=== PATIENT | female | born 1960 | race Caucasian/White ===

== ENCOUNTER 2016-10-17 11:59 | Emergency (ER) | payer MEDICAID ==
[2016-10-17 12:04] VITALS: BP 130/82
[2016-10-17] MEDS ORDERED: Acetaminophen/HYDROcodone 325-5 MG Tab PO ONE (12:15)
--- NOTE | 2016-10-17 12:24 | EDM.PDOC ---
ED HPI LOWER BACK PAIN/INJURY - General Chief Complaint: Back Pain or Injury Stated Complaint: FELL IN SHOWER Time Seen by Provider: 10/17/16 12:11 Source: Reports: Patient, Old records, Provider, RN notes reviewed History Limitations: Reports: Physical impairment - History of Present Illness INITIAL COMMENTS - FREE TEXT/NARRATIVE: 56-year-old female presents emergency department via EMS services she has a known history of alcohol abuse and dependence causing Wernicke-Korsakoff syndrome, she is a [facility] resident was evaluated by nurse practitioner today who called and discussed her case with me she had fallen in the shower and is now complaining of low back pain. Because of her physical impairment and difficult to obtain review of systems or significant past medical history, she is pleasant and cooperative - Related Data Allergies/ADRs: Allergies Allergy/AdvReac Type Severity Reaction Status Date / Time No Known Allergies Allergy Verified 10/17/16 12:05 Home Meds: Home Meds Acetaminophen [Tylenol Extra Strength] 500 mg PO QID 10/17/16 [History] ClonazePAM [KlonoPIN] 0.5 mg PO BEDTIME 10/17/16 [History] ClonazePAM [KlonoPIN] 0.5 mg PO Q8HR 10/17/16 [History] Donepezil HCl [Aricept] 10 mg PO BEDTIME 10/17/16 [History] Folic Acid 1 mg PO DAILY 10/17/16 [History] Magnesium Hydroxide [Milk of Magnesia] 30 ml PO BEDTIME PRN 10/17/16 [History] Mirtazapine [Remeron] 7.5 mg PO BEDTIME 10/17/16 [History] Polyethylene Glycol 3350 [MiraLAX] 17 gm PO DAILY 10/17/16 [History] Thiamine [Vitamin B-1] 100 mg PO DAILY 10/17/16 [History] buPROPion [Wellbutrin SR] 100 mg PO TID 10/17/16 [History] traZODone 25 mg PO BEDTIME 10/17/16 [History] Past Medical History Neurological History: Reports: Other (see below) (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) Psychiatric History: Reports: Depression Social & Family History - Tobacco Use Smoking Status *Q: Current Every Day Smoker Years of Tobacco use: 30 Packs/Tins Daily: 1 - Caffeine Use Caffeine Use: Reports: Coffee - Recreational Drug Use Recreational Drug Use: No ED ROS GENERAL - Review of Systems Review Of Systems: Unable To Obtain (Dementia) ED EXAM,LOWER BACK PAIN/INJURY - Physical Exam Exam: See Below Exam Limited By: Physical impairment General Appearance: alert, no apparent distress Respiratory/Chest: no respiratory distress Back Exam: normal inspection, decreased range of motion, vertebral tenderness ( Lumbar coccyx region). No: CVA tenderness (R), CVA tenderness (L), muscle spasm , paraspinal tenderness Extremities: normal inspection, non-tender, no pedal edema Course - Vital Signs Last Recorded V/S: Last Vital Signs Temp 98.5 F 10/17/16 12:03 Pulse 84 10/17/16 12:03 Resp 16 10/17/16 12:03 BP 130/82 10/17/16 12:03 Pulse Ox 94 L 10/17/16 12:03 - Orders/Labs/Meds Meds: Medications Discontinued Medications Generic Name Dose Route Start Last Admin Trade Name Freq PRN Reason Stop Dose Admin Hydrocodone Bitart/Acetaminophen 1 tab 10/17/16 12:15 10/17/16 12:21 Leonard 325-5 Mg PO 10/17/16 12:16 1 tab ONETIME ONE Administration Clonazepam 0.5 mg 10/17/16 12:33 10/17/16 12:49 Klonopin PO 10/17/16 12:34 0.5 mg ONETIME ONE Administration Cyclobenzaprine HCl 10 mg 10/17/16 13:25 10/17/16 13:29 Flexeril PO 10/17/16 13:26 10 mg ONETIME ONE Administration Hydromorphone HCl 1 mg 10/17/16 13:25 10/17/16 13:29 Dilaudid IM 10/17/16 13:26 1 mg ONETIME ONE Administration Departure - Departure Time of Disposition: 14:03 Disposition: [facility] Condition: poor Clinical Impression: Back pain Qualifiers: Back pain location: low back pain Chronicity: acute Back pain laterality: bilateral Sciatica presence: without sciatica Qualified Code(s): M54.5 - Low back pain Forms: ED Department Discharge Additional Instructions: Use hydrocodone as needed for back pain control, Please followup with your primary care provider in 3-5 days if not better, please call return to the emergency department with worsening of symptoms. - Assessment/Plan Plan: Assessment Acuity = acute Site and laterality = low back pain complicated patient with known history of toxic encephalopathy producing dementia Etiology = secondary to fall Manifestations = none Location of injury = home Lab values = x-rays of lumbar spine and coccyx were negative for any acute process no fracture noted Plan She had pain relief with the medications provided of hydrocodone, Dilaudid and Flexeril plan is discharge home with hydrocodone as needed for pain control follow up primary care 3-5 days for evaluation. She was able to and around the emergency department with assistance This note was dictated using [employer] voice recognition software please call with any questions.
[2016-10-17] MEDS ORDERED: ClonazePAM 0.5 MG Tab PO ONE (12:33)
--- NOTE | 2016-10-17 13:15 | CR ---
Lumbar Spine 2 or 3V HISTORY: pain FINDINGS: Lumbar vertebral bodies appear intact and in satisfactory alignment. No compression fracture or dis k space narrowing is seen. Spinous processes, posterior elements, and pedicles appear intact and in satisfactory alignment. Perivertebral soft tissues appear normal. A small amount of atherosclerotic calcification can be seen in the distal abdominal aorta. IMPRESSION: No acute lumbar spine abnormality identified.
--- NOTE | 2016-10-17 13:22 | CR ---
Sacrum Coccyx Min 2V HISTORY: pain FINDINGS: Segments of the sacrum and coccyx appear intact and in satisfactory alignment. No fracture or dislocation is identified. Bony architecture is preserved. Presacral soft tissues appear normal. IMPRESSION: No acute abnormality of the sacrum or coccyx is identified.
[2016-10-17] MEDS ORDERED: HYDROmorphone 1 MG/ML Syringe IM ONE (13:25)
[2016-10-17] MEDS ORDERED: Cyclobenzaprine 10 MG Tab PO ONE (13:25)
== END 2016-10-17 14:33 ==
LOC: JP.ED 11:59
DX: M54.5 Low back pain (principal); F03.90 Unspecified dementia, unspecified severity, without behavioral disturbance, psychotic disturbance, mood disturbance, and anxiety; F32.9 Major depressive disorder, single episode, unspecified; F17.210 Nicotine dependence, cigarettes, uncomplicated; Z79.899 Other long term (current) drug therapy; W18.2XXA Fall in (into) shower or empty bathtub, initial encounter
CPT/HCPCS: 72100; 72220; 96372; 99285; A9270; J1170

== ENCOUNTER 2018-09-03 05:49 | Emergency (ER) | payer MEDICAID, MEDICARE ==
--- NOTE | 2018-09-03 06:45 | CRLCR ---
INDICATION: Trauma. Fall. Pain. TECHNIQUE: Four views of the left knee. FINDINGS: There is no evidence for acute fracture dislocation. No erosion or effusion. The patella is within normal limits. The medial and lateral compartments are within normal limits. IMPRESSION: No acute fracture or acute malalignment of the left knee. Dictated by Basil Bailey MD @ Sep 03 2018 6:43AM Signed by Dr. Basil Bailey @ Sep 03 2018 6:43AM
--- NOTE | 2018-09-03 06:53 | CRLCT ---
INDICATION: Trauma. Fall. TECHNIQUE: Noncontrast head CT. FINDINGS: Intracranial cerebral and cerebellar atrophy. No intracranial hemorrhage or hydrocephalus. No evidence for acute ischemic changes or infarcts. No calvarial or skullbase fracture. The included paranasal sinuses and mastoid air cells are clear. IMPRESSION: No acute intracranial process identified. Age related changes intracranially. Please note that all CT scans at this facility use dose modulation, iterative reconstruction, and/or weight-based dosing when appropriate to reduce radiation dose to as low as reasonably achievable. Dictated by Basil Bailey MD @ Sep 03 2018 6:50AM Signed by Dr. Basil Bailey @ Sep 03 2018 6:52AM
[2018-09-03 07:10] VITALS: BP 109/73
--- NOTE | 2018-09-03 07:20 | EDM.PDOC ---
ED HPI GENERAL MEDICAL PROBLEM - General Chief Complaint: Lower Extremity Injury/Pain Stated Complaint: FELL 09/02/17, HURT KNEE Time Seen by Provider: 09/03/18 07:00 Source of Information: Reports: Patient, Intermediate Records History Limitations: Reports: Other - History of Present Illness INITIAL COMMENTS - FREE TEXT/NARRATIVE: 58-year-old female stumbled landing on her left knee, and is having knee discomfort. No other complaints. She came in while in the ER was busy however and Dr. Velez ordered a head CT, knee x-ray, and labs to begin the workup before the patient was seen. Care was turned over to myself pending results. I went in and visited with the patient, she does have left knee discomfort and pain with weightbearing but she is able to ambulate. She has no other injury or complaints. Location: Reports: Lower Extremity, Left Worsens with: Reports: Other (Weightbearing) Associated Symptoms: Reports: No Other Symptoms knee Pain Score (Numeric/FACES): 5 - Related Data Allergies Allergy/AdvReac Type Severity Reaction Status Date / Time No Known Allergies Allergy Verified 09/03/18 05:52 Home Meds: Home Meds Acetaminophen [Tylenol Extra Strength] 500 mg PO QID 10/17/16 [History] ClonazePAM [KlonoPIN] 0.5 mg PO BEDTIME 10/17/16 [History] ClonazePAM [KlonoPIN] 0.5 mg PO Q8HR 10/17/16 [History] Donepezil HCl [Aricept] 10 mg PO BEDTIME 10/17/16 [History] Folic Acid 1 mg PO DAILY 10/17/16 [History] Magnesium Hydroxide [Milk of Magnesia] 30 ml PO BEDTIME PRN 10/17/16 [History] Mirtazapine [Remeron] 7.5 mg PO BEDTIME 10/17/16 [History] Polyethylene Glycol 3350 [MiraLAX] 17 gm PO DAILY 10/17/16 [History] Thiamine [Vitamin B-1] 100 mg PO DAILY 10/17/16 [History] buPROPion [Wellbutrin SR] 100 mg PO TID 10/17/16 [History] traZODone 25 mg PO BEDTIME 10/17/16 [History] Past Medical History Cardiovascular History: Reports: Afib, Other (See Below) Other Cardiovascular History: tachacardia Respiratory History: Reports: COPD Genitourinary History: Reports: Renal Disease Musculoskeletal History: Reports: Back Pain, Chronic Neurological History: Reports: Other (See Below) Other Neuro History: ETOH dependency Dementia Psychiatric History: Reports: Addiction, Anxiety, Depression, Other (See Below) Other Psychiatric History: delusional disorder Social & Family History - Tobacco Use Smoking Status *Q: Former Smoker Years of Tobacco use: 30 Packs/Tins Daily: 0.2 Used Tobacco, but Quit: Yes Month/Year Tobacco Last Used: 1 - Caffeine Use Caffeine Use: Reports: Coffee Review of Systems - Review of Systems Review Of Systems: See Below Constitutional: Denies: Fever Respiratory: Denies: Shortness of Breath Cardiovascular: Denies: Chest Pain, Lightheadedness, Palpitations GI/Abdominal: Denies: Abdominal Pain Skin: Reports: Bruising (A small amount of bruising over the left knee) Neurological: Reports: Other (Has dementia, chronic confusion) ED EXAM, GENERAL - Physical Exam Exam: See Below Exam Limited By: No Limitations General Appearance: Alert, No Apparent Distress Eye Exam: Bilateral Eye: Normal Inspection Head: Atraumatic Neck: Supple Respiratory/Chest: No Respiratory Distress, Lungs Clear Cardiovascular: Regular Rate, Rhythm GI/Abdominal: Soft, Non-Tender Extremities: Other (Lower extremities were compared, the left knee has some swelling anteriorly over the patella and just distal to the patella with some slight bruising. The patella is very tender to palpation as is the anterior tibial area. There is no effusion, no significant pain with palpation of the lateral or medial knee.) Course - Vital Signs Last Recorded V/S: Last Vital Signs Temp 99.1 F 09/03/18 05:50 Pulse 81 09/03/18 07:10 Resp 16 09/03/18 07:10 BP 109/73 09/03/18 07:10 Pulse Ox 95 09/03/18 07:10 - Orders/Labs/Meds Orders: Active Orders 24 hr Category Date Time Status EKG Documentation Completion [RC] ASDIRECTED Care 09/03/18 06:52 Active EKG 12 Lead [EK] Routine Ther 09/03/18 06:52 Ordered Labs: Laboratory Tests 09/03/18 09/03/18 09/03/18 Range/Units 06:18 06:18 06:18 WBC 10.9 (4.5-11.0) K/uL RBC 4.41 (3.30-5.50) M/uL Hgb 12.8 (12.0-15.0) g/dL Hct 39.0 (36.0-48.0) % MCV 88 (80-98) fL MCH 29 (27-31) pg MCHC 33 (32-36) % Plt Count 316 (150-400) K/uL Neut % (Auto) 71 H (36-66) % Lymph % (Auto) 19 L (24-44) % [place] % (Auto) 9 H (2-6) % Eos % (Auto) 1 L (2-4) % Baso % (Auto) 0 (0-1) % PT 10.7 (9.5-12.0) sec INR 0.97 (0.80-1.20) Sodium 140 (140-148) mmol/L Potassium 3.7 (3.6-5.2) mmol/L Chloride 105 (100-108) mmol/L Carbon Dioxide 23 (21-32) mmol/L Anion Gap 11.9 (5.0-14.0) mmol/L BUN 8 (7-18) mg/dL Creatinine 0.9 (0.6-1.0) mg/dL Est Cr Clr Drug Dosing 53.01 mL/min Estimated GFR (MDRD) > 60 (>60) Glucose 112 H (74-106) mg/dL Calcium 8.8 (8.5-10.1) mg/dL Total Bilirubin 0.3 (0.2-1.0) mg/dL AST 22 (15-37) U/L ALT 33 D (12-78) U/L Alkaline Phosphatase 98 (46-116) U/L Troponin I 0.073 H* (0.000-0.056) ng/mL Total Protein 7.3 (6.4-8.2) g/dL Albumin 3.4 (3.4-5.0) g/dL Globulin 3.9 H (2.3-3.5) g/dL Albumin/Globulin Ratio 0.9 L (1.2-2.2) - Re-Assessments/Exams Free Text/Narrative Re-Assessment/Exam: 09/03/18 07:24 X-ray of the knee is negative. Dr. Velez also ordered a head CT which is negative, CBC and CMP with troponin. Labs were normal other other than a very minimally elevated troponin so an EKG was done which was also basically normal. A four-inch Onesimo wrap was applied to the knee and the patient can increase activity as tolerated. Departure - Departure Time of Disposition: 07:46 Disposition: DC/Tfer to [facility] Condition: Good Clinical Impression: Contusion of knee, left Qualifiers: Encounter type: initial encounter Qualified Code(s): S80.02XA - Contusion of left knee, initial encounter - Discharge Information Instructions: Contusion, [id number] Referrals: Markus Riojas MD [Primary Care Provider] - Forms: ED Department Discharge Care Plan Goals: Wrap knee for support and comfort over the next several days and increase activity as tolerated. Ibuprofen and Tylenol can help with pain if needed. Consider rechecking in 4-6 days if not improving satisfactorily.
== END 2018-09-03 08:36 ==
LOC: JP.ED 05:49
DX: S80.02XA Contusion of left knee, initial encounter (principal); J44.9 Chronic obstructive pulmonary disease, unspecified; Z87.891 Personal history of nicotine dependence; Z79.899 Other long term (current) drug therapy; W01.0XXA Fall on same level from slipping, tripping and stumbling without subsequent striking against object, initial encounter
CPT/HCPCS: 36415; 70450; 73562-LT; 80053; 84484; 85025; 85610; 93005; 99283; 99285-25

== ENCOUNTER 2022-10-08 16:38 | Emergency (ER) | payer MEDICARE, MEDICAID ==
[2022-10-08] MEDS ORDERED: Acetaminophen/HYDROcodone 325-5 MG Tab PO ONE (17:19)
[2022-10-08 17:55] LABS: ESTIMATED GFR 83 mL/min (>60)
[2022-10-08] MEDS ORDERED: HYDROmorphone 0.5 MG/0.5 ML Syringe IM ONE (18:03)
[2022-10-08 18:16] VITALS: BP 116/65; PULSE 66
== END 2022-10-08 19:57 ==
LOC: JP.ED 16:38
DX: S32.010A Wedge compression fracture of first lumbar vertebra, initial encounter for closed fracture (principal); J44.9 Chronic obstructive pulmonary disease, unspecified; Z79.899 Other long term (current) drug therapy; W18.39XA Other fall on same level, initial encounter
CPT/HCPCS: 36415; 71250; 74176; 80053; 81001; 85025; 96372; 99285; J1170